=== PATIENT | male | born 2000 | race Caucasian/White ===

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

== ENCOUNTER 2022-07-19 18:18 | Emergency (ER) | payer MEDICAID, SELFPAY ==
[2022-07-19 18:19] VITALS: BP 171/106; PULSE 87; RESP 18; TEMP 36.7; O2SAT 100; BMI 34.6
--- NOTE | 2022-07-19 20:00 | EDS_ITS ---
HPI History of Present Illness Chief Complaint: Itching Narrative Narrative: 21-year-old male with redness on the left calf. He believes is an insect bite. Started yesterday and its been itchy. He has not really been scratching at it. 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 He came home and it seemed to be more red. His significant other put some triamcinolone cream on it and it is significantly improving. He states he has a history of cellulitis in the past and just wanted to get evaluated. No systemic signs or symptoms. No pain. [facility] Medical History History of cellulitis Home Medications sulfamethoxazole 800 mg-trimethoprim 160 mg tablet (Bactrim DS) 1 tab PO BID #10 tabs 10/15/20 [Rx Last Taken Unknown] cephalexin 500 mg capsule 500 mg PO TID 5 days #15 caps 07/19/22 [Rx Last Taken Unknown] Allergy/AdvReac Type Severity Reaction Status Date / Time No Known Allergies Allergy Verified 07/19/22 18:20 Surgical History H/O wisdom tooth extraction Social History household members: significant other Smoking Status: Never smoker alcohol intake: current alcohol intake frequency: a few times a month Alcohol type: beer substance use type: does not use what type of physical activity do you participate in: weight training frequency: 5-6 times per week ROS ROS ED Constitutional Constitutional ED: Denies chills, fever(s) or sweats Eyes Eyes: Denies blurry vision or change in vision ENT ENT ED: Denies ear pain or sore throat Cardiovascular Cardiovascular: Denies chest pain, palpitations or racing heartbeat Respiratory/Chest Respiratory/Chest: Denies cough, dyspnea or sputum Gastrointestinal Gastrointestinal: Denies abdominal pain, constipation, diarrhea, nausea or vomiting Genitourinary Genitourinary ED: Denies dysuria, hematuria or urinary frequency Musculoskeletal Musculoskeletal: Denies arthralgias, myalgias or neck pain Integumentary Reports rash; Denies abscess or Abrasions Neurologic Neurologic: Denies headache(s), paresthesias or weakness Psychiatric Psychiatric: Denies anxiety, depression, suicidal ideation or suicidal thoughts Endocrine Endocrinology: Denies polydipsia or polyuria EXAM Physical Exam Const Vital Signs: 07/19/22 18:19 Temperature 98.1 F Temperature Source Temporal Pulse Rate 87 Respiratory Rate 18 Blood Pressure 171/106 H Blood Pressure Mean 127 Pulse Ox 100 Oxygen Delivery Method Room Air Positive well nourished General Appearance ED: NAD HEENT Reports moist mucous membranes Eyes PERRL and EOMs intact bilaterally Resp normal respiratory effort Cardio regular rate and regular rhythm Neuro oriented x3 and CN's II-XII intact bilaterally Psych mental status grossly normal Skin Skin Narrative: 2 cm circular area of erythema. No increased warmth. No induration. Nontender. MDM MDM MDM Narrative Medical decision making narrative: Patient presenting with rash which he thinks is from a bug bite. He reports is it significantly improved after putting triamcinolone cream on it. I do not believe it is cellulitis. I believe it is a localized reaction. I recommended he continue the triamcinolone cream. I did offer him a [id number] prescription for Keflex if it starts to become redder. Patient concerned that he has a history of cellulitis. Impression: 1. Insect bite Discharge Plan Triage Chief Complaint: Itching ED Provider: Jeronimo Villalta Dx/Rx/DC Orders Instructions: ED Insect Sting, Local Reaction Prescriptions: New cephalexin 500 mg capsule 500 mg PO TID 5 Days Qty: 15 0RF No Action sulfamethoxazole-trimethoprim [Bactrim DS] 800-160 mg tablet 1 tab PO BID Qty: 10 0RF Primary Care Provider: Care Physician,No Primary Referrals: Care Physician,No Primary [Primary Care Provider] - Disposition Disposition: Home, Self Care
== END 2022-07-19 20:13 | disposition home or self-care (01) ==
LOC: ED 20:11
PROVIDERS: Emergency Provider Student in an Organized Health Care Education/Training Program; Visit Provider Student in an Organized Health Care Education/Training Program
DX: S80.862A Insect bite (nonvenomous), left lower leg, initial encounter (principal); X58.XXXA Exposure to other specified factors, initial encounter
CPT/HCPCS: 99282